=== PATIENT | male | born 1980 | race African-American/Black ===

== ENCOUNTER 2017-01-15 10:39 | Emergency (ER) | payer MEDICAID ==
[2017-01-15 12:41] VITALS: BP 139/76
--- NOTE | 2017-01-15 13:16 | RAD ---
INDICATION: Right rib pain. COMPARISON: Comparison is made with a prior study from July 25, 2003. TECHNIQUE: Dual-energy PA and lateral views of the chest were obtained. FINDINGS: The heart is within normal limits in size. Mediastinal and hilar contours appear within normal limits. The lungs are clear. No pleural effusion is present. No fracture is seen. IMPRESSION: NO EVIDENCE FOR ACTIVE CARDIOPULMONARY DISEASE.
[2017-01-15] MEDS ORDERED: Ketorolac INJ* 60 MG/2 ML VIAL IM ONE (14:30)
--- NOTE | 2017-01-15 15:01 | RAD ---
Indication: Right rib pain and chest pain. 3 views of the right ribs demonstrate no fracture. No other bone or joint abnormalities identified. IMPRESSION: No fracture of the right ribs or pneumothorax is noted.
[2017-01-15] MEDS ORDERED: Ibuprofen TAB* 600 MG ONE (16:17)
[2017-01-15] MEDS ORDERED: Ibuprofen TAB* 600 MG PO ONE (16:22)
--- NOTE | 2017-01-15 17:40 | ED ---
Prabhakar Jain Billy, scribed for Chas Aguirre MD on 01/15/17 at 1423 . Complex/Multi-Sys Presentation - HPI Summary HPI Summary: Patient is a 36 year-old male coming to [facility] for evaluation of intermittent pain to the right side for about 3 weeks. He states that the pain is worse with cough, movement, and when straining in certain positions. Denies other symptoms such as nausea, vomiting, diarrhea, or dysuria. - History Of Current Complaint Chief Complaint: EDAbdPain Time Seen by Provider: 01/15/17 14:20 Hx Obtained From: Patient Onset/Duration: Gradual Onset, Lasting Weeks Timing: Intermittent, Lasting: Severity Currently: Moderate Severity Initially: Moderate Location: Pain At: - right side Aggravating Factor(s): movement, coughing, straining in certain positions Associated Signs And Symptoms: Negative: Nausea, Vomiting, Diarrhea, Dysuria - Allergies/Home Medications Allergies/Adverse Reactions: Allergies Allergy/AdvReac Type Severity Reaction Status Date / Time No Known Allergies Allergy Verified 01/15/17 10:43 PMH/Surg Hx/FS Hx/Imm Hx Sensory History: Denies: Hx Deafness Opthamlomology History: Denies: Hx Legally Blind Infectious Disease History: Denies: Traveled Outside the [place] in Last 30 Days - Family History Known Family History: Negative: Cardiac Disease, Hypertension, Diabetes - Social History Alcohol Use: Occasionally Substance Use Type: Reports: None Smoking Status (MU): Current Every Day Smoker Review of Systems Negative: Fever Negative: Vomiting, Diarrhea, Nausea Negative: dysuria Musculoskeletal: Other - Pain to the right side All Other Systems Reviewed And Are Negative: Yes Physical Exam - Summary Physical Exam Summary: VITAL SIGNS: Reviewed. GENERAL: Patient is a well developed and nourished male who is lying comfortable in the stretcher. Patient is not in any acute respiratory distress. HEAD AND FACE: No signs of trauma. No ecchymosis, hematomas or skull depressions. No sinus tenderness. EYES: PERRLA, EOMI x 2, No injected conjunctiva, no nystagmus. EARS: Hearing grossly intact. Ear canals and tympanic membranes are within normal limits. MOUTH: Oropharynx within normal limits. NECK: Supple, trachea is midline, no adenopathy, no JVD, no carotid bruit, no c- spine tenderness, neck with full ROM. CHEST: Symmetric, positive right rib cage tenderness at the level of the 11th rib mid axilla line. LUNGS: Clear to auscultation bilaterally. No wheezing or crackles. CVS: Regular rate and rhythm, S1 and S2 present, no murmurs or gallops appreciated. ABDOMEN: Soft, non-tender. No signs of distention. No rebound no guarding, and no masses palpated. Bowel sounds are normal. EXTREMITIES: FROM in all major joints, no edema, no cyanosis or clubbing. NEURO: Alert and oriented x 3. No acute neurological deficits. Speech is normal and follows commands. SKIN: Dry and warm Triage Information Reviewed: Yes Vital Signs On Initial Exam: Initial Vitals Temp Pulse Resp BP Pulse Ox 98.2 F 94 18 146/100 99 01/15/17 10:40 01/15/17 10:40 01/15/17 10:40 01/15/17 10:40 01/15/17 10:40 Vital Signs Reviewed: Yes Diagnostics - Vital Signs Vital Signs Temp Pulse Resp BP Pulse Ox 01/15/17 12:39 98.0 F 74 18 139/76 100 01/15/17 10:40 98.2 F 94 18 146/100 99 - Laboratory Lab Statement: Any lab studies that have been ordered have been reviewed, and results considered in the medical decision making process. - Radiology CXR Xray Interpretation: No Acute Changes Radiology Interpretation Completed By: Radiologist Ribs XR Xray Interpretation: No Acute Changes Radiology Interpretation Completed By: Radiologist Re-Evaluation - Re-Evaluation First Eval Re-Evaluation Time: 15:39 Change: Improved Second Eval Re-Evaluation Time: 16:16 Complex Multi-Symp Course/Dx Assessment/Plan: Patient is a 36 year-old male coming to [facility] for evaluation of intermittent pain to the right side for about 3 weeks. He states that the pain is worse with cough, movement, and when straining in certain positions. Denies other symptoms such as nausea, vomiting, diarrhea, or dysuria. Rib XR is negative for fracture or dislocation. In the ED course, he was given aspirin since he refused Toradol due to rib pain. At this point, we believe that the pain is secondary to his cough. On re-examination, the abdomen is soft and nontender with positive bowel sounds. He still has point tenderness to the right ribcage area around the 11th rib. He will be discharged home to follow up with PCP. I did not perform any other images since he has no abdomial pain, no trauma, pain only increases with movement any it pin point tenderness in the rib at palpation. I discussed all the findings and test results with the patient. Patient was instructed to return to the emergency room immediately if any of the symptoms return or worsens. They were explained the possibility of an early abdominal pathology which was not detected at this time despite the physical exam and testing. They understand and agree. Abdominal exam before discharge: Soft, NT. No signs of distention. BS present. No rebound no guarding , and no masses palpated. Patient is alert and oriented and hemodynamically stable. Patient is to follow up with primary care physician in the next 2 to 3 days. Patient agree and understands. - Diagnoses Provider Diagnoses: Rib pain Discharge - Discharge Plan Condition: Stable Disposition: HOME Patient Education Materials: Thoracic Pain (ED) Referrals: [facility] [Outside] The documentation as recorded by the Prabhakar toure Billy accurately reflects the service I personally performed and the decisions made by me, Chas Aguirre MD.
== END 2017-01-15 16:26 | disposition home or self-care (01) ==
LOC: ED 10:39
DX: R07.81 Pleurodynia (principal); R05 Cough; F17.210 Nicotine dependence, cigarettes, uncomplicated
CPT/HCPCS: 71020; 96372; 99282; A9270-GY; J1885

== ENCOUNTER 2017-03-21 09:34 | Emergency (ER) | payer MEDICAID, OTHER ==
[2017-03-21] MEDS ORDERED: Aspirin Low Dose CHEW TAB* 81 MG PO ONE (09:51)
[2017-03-21] MEDS ORDERED: Ondansetron INJ* 2 MG/ML VIAL IV ONE (09:51)
[2017-03-21] MEDS ORDERED: NS 0.9% 1000 ML* 1,000 ML IV ONE ×2 (09:51→11:18)
--- NOTE | 2017-03-21 10:08 | ED ---
Complex/Multi-Sys Presentation - HPI Summary HPI Summary: [facility] endorsing fatigue, VUONG, N/V, chest pain , weakness and dehydration. He states he has been drinking and using marijuana x 2 days. He denies symptoms like this in the past. He denies any complaints yesterday. Symptoms began 2 hours ago after he awoke. He states he thinks someone "slipped me something," he states his weakness is 10/10 and is difficult to arouse. Denies drug use other than marijuana. Heavy ETOH last evening. - History Of Current Complaint Chief Complaint: EDChestPainROMI Time Seen by Provider: 03/21/17 09:40 Hx Obtained From: Patient Onset/Duration: Sudden Onset Timing: Constant Severity Currently: Mild Severity Initially: Mild Associated Signs And Symptoms: Positive: Dizziness, Weakness, Headache, Palpitations, Nausea, Vomiting, Decreased Oral Intake - Allergies/Home Medications Allergies/Adverse Reactions: Allergies Allergy/AdvReac Type Severity Reaction Status Date / Time No Known Allergies Allergy Verified 01/15/17 10:43 PMH/Surg Hx/FS Hx/Imm Hx Previously Healthy: Yes Sensory History: Denies: Hx Legally Blind, Hx Deafness Opthamlomology History: Denies: Hx Legally Blind - Immunization History Hx Pertussis Vaccination: No Immunizations Up to Date: Unable to Obtain/Confirm Infectious Disease History: No Infectious Disease History: Denies: Traveled Outside the [place] in Last 30 Days - Family History Known Family History: Negative: Cardiac Disease, Hypertension, Diabetes - Social History Occupation: Employed Full-time Lives: With Family Alcohol Use: Occasionally Hx Substance Use: No Substance Use Type: Reports: None Hx Tobacco Use: Yes Smoking Status (MU): Current Every Day Smoker Review of Systems Positive: Chills, Fatigue, Skin Diaphoresis Eyes: Negative ENT: Negative Positive: Palpitations Positive: Shortness Of Breath Positive: Vomiting, Nausea Positive: no symptoms reported, see HPI Positive: Arthralgia, Myalgia Skin: Negative Positive: Headache, Weakness Psychological: Normal All Other Systems Reviewed And Are Negative: Yes Physical Exam Triage Information Reviewed: Yes Vital Signs On Initial Exam: Initial Vitals Temp Pulse Resp BP Pulse Ox 98.1 F 117 19 142/90 100 03/21/17 09:35 03/21/17 09:35 03/21/17 09:35 03/21/17 09:35 03/21/17 09:35 Vital Signs Reviewed: Yes Appearance: Positive: Well-Nourished, Ill-Appearing Skin: Positive: Warm, Skin Color Reflects Adequate Perfusion Head/Face: Positive: Normal Head/Face Inspection Eyes: Positive: EOMI, ZINA, Conjunctiva Clear ENT: Positive: Pharynx normal, TMs normal Neck: Positive: Supple, No Lymphadenopathy Respiratory/Lung Sounds: Positive: Clear to Auscultation, Breath Sounds Present Cardiovascular: Positive: Normal, RRR, Pulses are Symmetrical in both Upper and Lower Extremities Bowel Sounds: Positive: Present Musculoskeletal: Positive: Normal, Strength/ROM Intact Neurological: Positive: Sensory/Motor Intact, Alert, Oriented to Person Place, Time, Speech Normal Psychiatric: Positive: Normal AVPU Assessment: Alert - Aria Coma Scale Best Eye Response: 4 - Spontaneous Best Motor Response: 6 - Obeys Commands Best Verbal Response: 5 - Oriented Diagnostics - Vital Signs Vital Signs Temp Pulse Resp BP Pulse Ox 03/21/17 09:49 99.6 F 100 18 163/87 99 03/21/17 09:35 98.1 F 117 19 142/90 100 - Laboratory Result Diagrams: 03/21/17 10:33 03/21/17 10:33 Lab Statement: Any lab studies that have been ordered have been reviewed, and results considered in the medical decision making process. Complex Multi-Symp Course/Dx Course Of Treatment: Patient states he thinks he was [place] [employer]. He admits to drinking heavily and smoking marijuana but he does that at baseline and never has felt this way. Made patient aware that we would be unable to test for certain drugs, but would draw labs and urine d/t his symptoms. 1L IV placed. Labs WNL except for some dehydration. Patient made aware of results and provider explained this is likely a combination of sun , dehydration, ETOH and marijuana. Patient was discharged. He continues to demand we check for other drugs. Provider agreed. 10 minutes after discussion , patient left the ED. He did not sign discharge paperwork, but RN stated the information was given to him prior to his elopement. Patient made aware of plan and is OK with discharge. Patient will follow up with PCP and return if symptoms become worse. Return precautions given, medications and side effects reviewed. - Diagnoses Differential Diagnoses/HQI/PQRI: Metabolic Abnormality, Urinary Tract Infection , Other - dehydration, ETOH Provider Diagnoses: Dehydration Discharge - Discharge Plan Condition: Stable Disposition: HOME Patient Education Materials: Weakness (ED) Referrals: No Primary Care Phys,NOPCP [Primary Care Provider] - Additional Instructions: Follow up with PCP For any worsening symptoms, return to the ED immediately or see your PCP.
--- NOTE | 2017-03-21 10:18 | RAD ---
INDICATION: Chest pain. COMPARISON: Comparison is made with a prior chest x-ray study from January 15, 2017. TECHNIQUE: A portable view of the chest was obtained. FINDINGS: Cardiac and mediastinal contours appear to be within normal limits. The lungs are clear. No pleural effusion is seen. IMPRESSION: NO EVIDENCE FOR ACUTE DISEASE.
[2017-03-21 10:43] LABS: Hematocrit 46 % (42-52); Hemoglobin 14.9 g/dl (14.0-18.0); Mean Corpuscular HGB Conc 32 g/dl (31-36); Mean Corpuscular Hemoglobin 27 pg (27-31); Mean Corpuscular Volume 84 fL (80-94); Mean Platelet Volume 9 um3 (7.4-10.4); Red Cell Distribution Width 14 % (10.5-15); White Blood Count 14.5 10^3/ul (3.5-10.8)
[2017-03-21 10:55] LABS: Albumin 4.4 g/dL (3.2-5.2); BUN/Creatinine Ratio 12.6 (8-20); Calcium 9.2 mg/dL (8.6-10.3); EGFR African American 127.7 (>60); EGFR Non-African American 99.3 (>60); Globulin 2.9 g/dL (2-4); Magnesium 1.7 mg/dL (1.9-2.7); Potassium 3.5 mmol/L (3.5-5.0); Total Bilirubin 1.4 mg/dL (0.2-1.0); Total Protein 7.3 g/dL (6.4-8.9)
[2017-03-21 10:59] LABS: Troponin I 0.01 ng/mL (<0.04)
[2017-03-21 12:02] VITALS: BP 149/91
[2017-03-21 13:13] LABS: Urine Bilirubin Negative (Negative); Urine Glucose Negative (Negative); Urine Nitrite Negative (Negative)
[2017-03-21 13:34] LABS: Benzodiazepine Urine Screen None Detected (None Detect)
== END 2017-03-21 13:15 | disposition home or self-care (01) ==
LOC: ED 09:34
DX: E86.0 Dehydration (principal); R42 Dizziness and giddiness; R53.1 Weakness; R51 Headache; R00.2 Palpitations; R11.2 Nausea with vomiting, unspecified
CPT/HCPCS: 36415; 71010; 80053; 80307; 81003; 82550; 82553; 83605; 83735; 83874; 83880; 84484; 85025; 85610; 85730; 93005; 99282; A9270-GY; J2405